=== PATIENT | female | born 1980 | race Caucasian/White ===

== ENCOUNTER → 2020-12-16 | Outpatient (CLI) | payer OTHER | LOC: EXRD 10:30 | DX: R93.7 Abnormal findings on diagnostic imaging of other parts of musculoskeletal system (principal) | CPT/HCPCS: 77080 ==

== ENCOUNTER → 2021-03-24 | Outpatient (CLI) | payer OTHER | LOC: KOH-I 08:30 | DX: M79.671 Pain in right foot (principal); M21.961 Unspecified acquired deformity of right lower leg | CPT/HCPCS: 73700 ==